=== PATIENT | male | born 1940 | race Two or more races ===

== ENCOUNTER 2025-06-19 12:18 | Outpatient (REF) | payer MEDICARE, SELFPAY ==
--- OUTSIDE RECORDS SUMMARY | 2025-04-18 09:40 | XMS_ITS ---
Author Organization [facility] in [place] Address [address] [place] [address] Care Team Providers Care Buying Intern Name Role Phone Richard ALVAREZ, Kaila Primary Care Provider Consuelo vailaRobert Nguyen Unavailable [phone] REASON FOR VISIT in a hospital Encounters Encounter Location Date Provider Diagnosis [facility] [place] [address] [place] [address] 04/18/2025 Robert Crawford Plan Of Treatment No Information Progress Notes * HERNANDEZShashank LDOB: [birth year] (85 yo M)Acc No.[id number]:04/18/2025 UNLOCKED PROGRESS NOTE Follow Up Patient: Shashank JUDD Provider: Bailee Crawford MD :1940 A ge:85 Y S ex:Male Date:04/18/2025 Address:[address] [place] [address] [address] [place], [id number] Pcp:Kaila Ramos MD Subjective: * Chief Complaints: * 1 . In a hospital. * Medical History: Objective: * Vitals: Assessment: Plan: * Treatment: * * Electronic signature of Nuha Crawfrod MD, [id number] on 06/19/2025 at 12:26 PM EDT Sign off status: Pending Visit Status: C ANC (Cancelled) * Provider: Bailee Crawford MD Date: 0 04/18/2025 Generated for Lisa childers/Lolis/Kee on: 0 06/19/2025 12:26 PM EDT
--- OUTSIDE RECORDS SUMMARY | 2025-06-14 07:15 | XMS_ITS ---
Author Organization [facility] Address [address] [place] [address] Care Team Providers Care Android Framework Developer Name Role Phone KEVIN CALLAHAN Unavailable [phone] MICHELLE ARMIJO Unavailable [phone] REASON FOR VISIT Respiratory failure, Tracheostomy Encounters Encounter Location Date Provider Diagnosis [address] [place], [place] [id number] 06/14/2025 MICHELLE ALEKSANDER Acute hypoxic respir atory failure J96.01 ; Tracheostomy status Z93.0 ; Ventilator dependent Z99.11 ; Congestive heart failure I50.9 ; Pulmonary HTN I27.20 and Pleural effusion J90 Assessments Encounter Date Diagnosis (ICD Code) Assessment Notes Treatment Notes Treatment Clinical Notes Section Notes 06/14/2025 Acute hypoxic respiratory failure (ICD-10 - J96.01) 06/14/2025 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 Kevin Callahan Plan Of Treatment Treatment Notes Assessment Notes Other Seen in collaboratio n and discussed plan of care with Dr. Kevin Callahan Next Appt Details Follow Up: 1 Week, Reason: Progress Notes * Shashank HERNANDEZDOB: [birth year] (85 yo M)Acc No.[id number]:06/14/2025 Progress Notes Patient: Shashank JUDD Appointment Provider: Lucretia ARMIJO NP :1940 A ge:85 Y S ex:Male Date:06/14/2025 Address:[address] [place], [place], [place] Subjective: * Chief Complaints: * R espiratory failureTracheostomy * HPI: C onstitutional: Continuing to see the patient for pulmonary management. Evaluated patients pulmonary status today with the respiratory therapist. Discussed residents current pulmonary status, orders, and plan of care. Physical examination unchanged from baseline. Resident is back from HD. On the ventilator currently. Will hold weaning while on antibiotics. 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 Pneumonia, Klebsiella per recent sputum Encephalopathy Dependent on ventilator at HS and during HD CHF Kidney failure, dependent on HD Pulmonary HTN, EF 63%, RVSP 58 mmHg Tracheoesophageal fistula Pleural effusions with hx frequent thoracentesis Anemia Plan: Levaquin 500 mg x10 days per recent sputum CXR from 06/08 showed infiltrate and infusion, left greater than right CATC as tolerated during the day and PMV as tolerated, after hemodialysis AC VC 16/480/5/30% at HS and PRN Trach care and changes per RT Shiley 6 XLT cuffed Albuterol nebs BID Nephrology following Will continue to monitor pulmonary status. * ROS: U nable to assess due to mentation, current medical condition. * Medical History: * Surgical History: * Hospitalization/Major Diagno stic Procedure: * Medications: Objective: * Vitals: * Examination: G eneral Examination: GENERAL APPEARANCE: i n no acute distress, chronically ill appearing. ORAL CAVITY: m ucosa moist. THROAT: n ormal. NECK/THYROID: n zack supple, trach c/d/i. SKIN: n o suspicious lesions, warm and dry. HEART: n o murmurs, regular rate and rhythm, S1, S2 normal.? LUNGS: d iminished breath sounds throughout. EXTREMITIES: n o clubbing, cyanosis, or edema. ? Assessment: * Assessment: 1. A cute hypoxic respiratory failure - J96.01 (Primary) 2 . T racheostomy status - Z93.0 3 . V entilator dependent - Z99.11 4 . C ongestive heart failure - I50.9 5 . P ulmonary HTN - I27.20 6 . P leural effusion - J90 N otes :with hx frequent thoracentesis Plan: * Treatment: * Procedure Codes: 9 9308 NURSING FAC CARE [id number] BMI<30 AND >=22 CALC & DOCU * Follow Up: 1 Week * * Sign off status: Completed true * Appointment Provider: Lucretia ARMIJO NP Date: 06/14/2025 Generated for Lisa childers/Lolis/Miguelitting on: 0 06/19/2025 12:26 PM EDT History and Physical Notes * HPI (History of Present Illness) Category Sub-Category Detail Notes Category Not es Constitutional Continuing to see the patient for pulmonary management. Evaluated patients pulmonary status today with the respiratory therapist. Discussed residents current pulmonary status, orders, and plan of care. Physical examination unchanged from baseline. Resident is back from HD. On the ventilator currently. Will hold weaning while on antibiotics. 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 Pneumonia, Klebsiella per recent sputum Encephalopathy Dependent on ventilator at HS and during HD CHF Kidney failure, dependent on HD Pulmonary HTN, EF 63%, RVSP 58 mmHg Tracheoesophageal fistula Pleural effusions with hx frequent thoracentesis Anemia Plan: Levaquin 500 mg x10 days per recent sputum CXR from 06/08 showed infiltrate and infusion, left greater than right CATC as tolerated during the day and PMV as tolerated, after hemodialysis AC VC 16/480/5/30% at HS and PRN Trach care and changes per RT Shiley 6 XLT cuffed Albuterol nebs BID Nephrology following Will continue to monitor pulmonary status Examination Category Sub-Category Detail Notes Category Not es General Examination GENERAL APPEARANCE: in no ac bruna distress, chronically ill appearing THROAT: normal NECK/THYROID: neck supple, trach c /d/i HEART: no murmurs, regular rate and rhythm, S1, S2 normal LUNGS: diminished breath so unds throughout SKIN: no suspicious lesion s, warm and dry EXTREMITIES: no clubbing, cyanosi s, or edema ORAL CAVITY: mucosa moist
--- OUTSIDE RECORDS SUMMARY | 2025-06-15 10:17 | XMS_ITS ---
Author Organization [facility] in [place] Address [address] [place] [address] Care Team Providers Care Waxer Floor Name Role Phone Richard ALVAREZ, Kaila Primary Care Provider Consuelo vailable Jj Curtis Unavailable [phone] REASON FOR VISIT critical labs Encounters Encounter Location Date Provider Diagnosis [facility] [place] [address] [place] [address] 06/15/2025 Jj Curtis Plan Of Treatment No Information Progress Notes * Shashank HERNANDEZ LDOB: [birth year] (85 yo M)Acc No.[id number]:06/15/2025 Patient: Lucretia Shashank CHANDLER :1940 A ge:85 Y S ex:Male Address:[address] [place] [address], [facility] [address] * true * Date: Generated for Printi ng/Faxing/eTransmitting on: 0 06/19/2025 12:26 PM EDT
--- OUTSIDE RECORDS SUMMARY | 2025-06-17 06:30 | XMS_ITS ---
Author Organization [facility] Address [address] [place] [address] Care Team Providers Care Gun Welder Name Role Phone KATHY CALLAHANSayda Carreno [phone] REASON FOR VISIT Respiratory failure, Tracheostomy Encounters Encounter Location Date Provider Diagnosis [address] [place], [place] [id number] 06/17/2025 KEVINSayda CALLAHAN Acute hypoxic respir atory failure J96.01 ; Tracheostomy status Z93.0 ; Ventilator dependent Z99.11 ; Congestive heart failure I50.9 ; Pulmonary HTN I27.20 and Pleural effusion J90 Assessments Encounter Date Diagnosis (ICD Code) Assessment Notes Treatment Notes Treatment Clinical Notes Section Notes 06/17/2025 Acute hypoxic respiratory failure (ICD-10 - J96.01) 06/17/2025 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) 06/17/2025 Ventilator dependent (ICD-10 - Z99.11) 06/17/2025 Congestive heart failure (ICD-10 - I50.9) 06/17/2025 Pulmonary HTN (ICD-10 - I27.20) 06/17/2025 Pleural effusion (ICD-10 - J90) with hx frequent thoracentesis Plan Of Treatment Next Appt Details Follow Up: 1 Week, Reason: Progress Notes * Shashank HERNANDEZDOB: 2 (85 yo M)Acc No.[id number]:06/17/2025 Progress Notes Patient: Shashank JUDD Provider: Chris Callahan MD :1940 A ge:85 Y S ex:Male Date:06/17/2025 Phone: Address:[address] [place] [address], [facility] Subjective: * Chief Complaints: * 1 . Respiratory failure. 2. Tracheostomy. * HPI: C onstitutional: Continuing to see the patient for pulmonary management. Evaluated patient in the facility today with staff. Reviewed chart, vital signs, and any new orders. Discussed pulmonary status with the nurse and RT. Physical examination unchanged. No new pulmonary concerns. Continue current orders as written. 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 [...] mentation, current medical condition. * Medical History: Objective: * Vitals: * Examination: G eneral [...] Procedure Codes: 9 9308 NURSING FAC CARE SUBSEQ, G8420 BMI<30 AND >=22 CALC & DOCU * Follow Up: 1 Week * * Electronic signature of KEVIN CALLAHAN MD on 06/19/2025 at 12:26 PM EDT Sign off status: Pending * Provider: Chris Callahan MD Date: 06/17/2025 Generated for Lisa childers/Lolis/Miguelitting on: 06/19/2025 12:26 PM EDT History and Physical Notes * HPI (History of Present Illness) Category Sub-Category Detail Notes Category Not es Constitutional Continuing to see the patient for pulmonary management. Evaluated patient in the facility today with staff. Reviewed chart, vital signs, and any new orders. Discussed pulmonary status with the nurse and RT. Physical examination unchanged. No new pulmonary concerns. Continue current orders as written. 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 [...]
--- OUTSIDE RECORDS SUMMARY | 2025-06-19 12:26 | XMS_ITS | Patient Health Record ---
Author Organization [facility] Address [address] [address] Care Team Providers Care Market Research Analyst Name Role Phone LONDON KEVIN Unavailable [phone] ALONSO REA Unavailable [phone] ALEKSANDER MICHELLE Unavailable [phone] Allergies No Known Allergies Reason For Referral No Information Social History Tobacco Use: Social History Observation Description Date Details (start date - stop date) Never Smoker NA - NA Tobacco Control (Standard) Question Answer Notes Tobacco use: Nonsmoker Problems Problem Type SNOMED Code ICD Code Onset Dates Problem Status W/U Status Risk Notes Problem Tracheostomy present (195217833) Tracheostomy status (Z93.0) Active confirmed Problem Congestive heart failure (57269259) Congestive heart failure (I50.9) Active confirmed Problem History of respirator dependence (733539606) Ventilator dependent (Z99.11) Active confirmed Problem Pulmonary hypertension (69358684) Pulmonary HTN (I27.20) Active confirmed Encounters Encounter Location Date Provider Diagnosis [address] [id number] 06/17/2025 KEVIN CALLAHAN Acute hypoxic respir atory failure J96.01 ; Tracheostomy status Z93.0 ; Ventilator dependent Z99.11 ; Congestive heart failure I50.9 ; Pulmonary HTN I27.20 and Pleural effusion J90 [address] [id number] 06/19/2025 ALONSO REA Acute hypoxic respir atory failure J96.01 ; Tracheostomy status Z93.0 ; Ventilator dependent Z99.11 ; Congestive heart failure I50.9 ; Pulmonary HTN I27.20 and Pleural effusion J90 [address] [id number] 06/07/2025 [facility] Acute hypoxic respir atory failure J96.01 ; Tracheostomy status Z93.0 ; Ventilator dependent Z99.11 ; Congestive heart failure I50.9 ; Pulmonary HTN I27.20 and Pleural effusion J90 [address] [id number] 06/10/2025 KEVIN CALLAHAN Acute hypoxic respir atory failure J96.01 ; Tracheostomy status Z93.0 ; Ventilator dependent Z99.11 ; Congestive heart failure I50.9 ; Pulmonary HTN I27.20 and Pleural effusion J90 [address] [id number] 06/12/2025 [facility] Acute hypoxic respir atory failure J96.01 ; Tracheostomy status Z93.0 ; Ventilator dependent Z99.11 ; Congestive heart failure I50.9 ; Pulmonary HTN I27.20 and Pleural effusion J90 [address] [id number] 06/14/2025 MICHELLE ARMIJO Acute hypoxic respir atory failure J96.01 ; Tracheostomy status Z93.0 ; Ventilator dependent Z99.11 ; Congestive heart failure I50.9 ; Pulmonary HTN I27.20 and Pleural effusion J90 Assessments Encounter Date Diagnosis (ICD Code) Assessment Notes Treatment Notes Treatment Clinical Notes Section Notes 06/07/2025 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) 06/07/2025 Acute hypoxic respiratory failure (ICD-10 - J96.01) 06/10/2025 Acute hypoxic respiratory failure (ICD-10 - J96.01) 06/12/2025 Acute hypoxic respiratory failure (ICD-10 - J96.01) 06/14/2025 Acute hypoxic respiratory failure (ICD-10 - J96.01) 06/17/2025 Acute hypoxic respiratory failure (ICD-10 - J96.01) 06/19/2025 Acute hypoxic respiratory failure (ICD-10 - J96.01) 06/19/2025 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) 06/17/2025 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) 06/14/2025 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) 06/12/2025 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) 06/10/2025 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) 06/07/2025 Ventilator dependent (ICD-10 - Z99.11) 06/07/2025 Congestive heart failure (ICD-10 - I50.9) 06/10/2025 Ventilator dependent (ICD-10 - Z99.11) 06/12/2025 Ventilator dependent (ICD-10 - Z99.11) 06/17/2025 Ventilator dependent (ICD-10 - Z99.11) 06/14/2025 Ventilator dependent (ICD-10 - Z99.11) 06/19/2025 Ventilator dependent (ICD-10 - Z99.11) 06/17/2025 Congestive heart failure (ICD-10 - I50.9) 06/19/2025 Congestive heart failure (ICD-10 - I50.9) 06/12/2025 Congestive heart failure (ICD-10 - I50.9) 06/14/2025 Congestive heart failure (ICD-10 - I50.9) 06/10/2025 Congestive heart failure (ICD-10 - I50.9) 06/07/2025 Pulmonary HTN (ICD-10 - I27.20) 06/07/2025 Pleural effusion (ICD-10 - J90) with hx frequent thoracentesis 06/12/2025 Pulmonary HTN (ICD-10 - I27.20) 06/10/2025 Pulmonary HTN (ICD-10 - I27.20) 06/14/2025 Pulmonary HTN (ICD-10 - I27.20) 06/17/2025 Pulmonary HTN (ICD-10 - I27.20) 06/19/2025 Pulmonary HTN (ICD-10 - I27.20) 06/19/2025 Pleural effusion (ICD-10 - J90) with hx frequent thoracentesis 06/17/2025 Pleural effusion (ICD-10 - J90) with hx frequent thoracentesis 06/12/2025 Pleural effusion (ICD-10 - J90) with hx frequent thoracentesis 06/14/2025 Pleural effusion (ICD-10 - J90) with hx frequent thoracentesis 06/10/2025 Pleural effusion (ICD-10 - J90) with hx frequent thoracentesis 06/19/2025 Other Seen in collaboration and discussed plan of care with Dr. Kevin Callahan 06/07/2025 Other Seen in collaboration and discussed plan of care with Dr. Kevin Callahan 06/12/2025 Other Seen in collaboration and discussed plan of care with Dr. Kevin Callahan 06/14/2025 Other Seen in collaboration and discussed plan of care with Dr. Kevin Callahan Plan Of Treatment No Information Insurance Providers Payer Name Payer Address Payer Phone Subscriber Number Group Number Insured Name Patient Relationship to Insured Coverage Start Date Coverage End Date [employer] [address] [address] [place] [address] [id number] Shashank Harris Self - patient is the insured Medical (General) History Medical History History ICD Code Acute hypoxic respiratory fa ilure Tracheostomy, 12/18/24 Pneumonia Encephalopathy Dependent on ventilator CHF Kidney failure, dependent on HD Pulmonary HTN, EF 63%, RVSP 58 mmHg Tracheoesophageal fistula Pleural effusions with hx frequent thoracentesis Surgical History Surgery Date(Month/Year) Reviewed Hospitalization History Reason Date(Month/Year) Reviewed
--- OUTSIDE RECORDS SUMMARY | 2025-06-19 12:26 | XMS_ITS | Patient Health Record ---
Author Organization [facility] in [place] Address [address] [place] [address] Care Team Providers Care Dispatch Coordinator Name Role Phone Richard ALVAREZ, Kaila Primary Care Provider Jj Perry Unavailable [phone] Robert Crawford Unavailable [phone] Kendrick Olson Unavailable [phone] Allergies Allergen (clinical drug ingredient) Drug/Non Drug Allergy documented on EMR Reaction Allergy Type Onset Date Status No Known Drug Allergy Unknown Drug Allergy Active Results Component Value Reference Range Notes BRN NATRIURETIC PEP Reviewed date:09/13/2024 03:47:23 PM Interpretation: Performing Lab:[facility], [address] [place] [address] PH:[phone] Notes/Report: Pro-BNP 1313 An age-independent cutoff point of 300 pg/ml has a 98% negative predictive 0-300 pg/mL value excluding acute heart failure. Electrolyte Panel Reviewed date:09/13/2024 03:47:13 PM Interpretation: Performing Lab:[facility], [address] [place] [address] PH:[phone] Notes/Report: NA (Sodium) 137 136-145 mmol/L K (Potassium) 4.8 3.7-5.3 mmol/L Chloride 98 98-107 mmol/L CO2 30 20-31 mmol/L Anion Gap 9 9-16 mmol/L BUN/Creatinine Reviewed date:09/13/2024 03:47:20 PM Interpretation: Performing Lab:[facility], [address] [place] [address] PH:[phone] Notes/Report: BUN (Urea N) 19 8-23 mg/dL Creatinine 1.2 0.7-1.2 mg/dL eGFR 60 >60 mL/min/1.73m2 These results are not intended for use in patients <18 years of age. eGFR results are calculated without a race factor using the 2020 CKD-EPI equation. Careful clinical correlation is recommended, particularly when comparing to results calculated using previous equations. The CKD-EPI equation is less accurate in patients with extremes of muscle mass, extra-renal metabolism of creatine, excessive creatine ingestion, or following therapy that affects renal tubular secretion. Surgical Pathology ([facility]) ( Not yet reviewed by provider) Interpretation: Performing Lab: Notes/Report: Path Number: [id number] -- Diagnosis -- A. STOMACH, BIOPSY: -GASTRIC MUCOSA WITH INTESTINAL METAPLASIA. -NO HELICOBACTER ORGANISMS IDENTIFIED. B. ESOPHAGUS, UPPER, BIOPSY: -ACUTE EXUDATIVE INFLAMMTORY INFILTRATE. -NO FUNGAL ORGANISMS OR VIRAL CYTOPATHIC EFFECT. Radha Xie Electronically Signed Out ag/11/21/2024 Clinical Information Pre-Op Diagnosis: HEMATEMESIS, UNSPECIFIED WHETHER NAUSEA PRESENT Operative Findings: STOMACH BIOPSY; UPPER ESOPHAGEAL BLAQUE Operation Performed: ESOPHAGOGASTRODUODENOSCOPY BIOPSY se Source of Specimen A: STOMACH BIOPSY B: UPPER ESOPHAGUS BLAQUE Gross Description A. SHASHANK HERNANDEZ, STOMACH BIOPSY Received in formalin are two singh-white tissue fragments each 0.2 cm and are 0.4 x 0.2 x 0.1 cm in aggregate. Entirely 1cs. B. SHASHANK HERNANDEZ, UPPER ESOPHAGUS Received in formalin are four singh-white tissue fragments from 0.1 to 0.3 cm and are 0.6 x 0.1 x 0.1 cm in aggregate. Entirely 1cs. [facility] er Radha Xie/se:11/17/2024 Microscopic Description A, B. Microscopic examination performed. A. H. pylori immunostain is negative, control reactive. B. GMS and CMV are negative, controls reactive. asr Processing Lab: [facility] [address] [place] [address] Interpretation Performed at [facility] [address] [place], [place] SURGICAL PATHOLOGY CONSULTATION Patient Name: SHASHANK HERNANDEZ [facility] Rec: [id number] [facility] ANATOMIC PATHOLOG[facility] [address] [facility]. [place], [place] [address] XR CHEST PORTABLE (Not yet r eviewed by provider) Interpretation: Performing Lab: Notes/Report: EXAMINATION: Performed at: [address] [facility] [address] Performed at: XR CHEST (SINGLE VIEW FRONTA L) Reviewed date:11/16/2024 01:28:44 PM Interpretation: Performing Lab: Notes/Report: EXAMINATION: Performed at: [address] [facility] [address] Performed at: XR CHEST PORTABLE Reviewed date:11/16/2024 01:28:22 PM Interpretation: Performing Lab: Notes/Report: EXAMINATION: Performed at: [address] [facility] [address] Performed at: XR CHEST PORTABLE Reviewed date:11/16/2024 02:50:22 PM Interpretation: Performing Lab: Notes/Report: EXAMINATION: Performed at: [address] [address] Performed at: BUN/Creatinine Reviewed date:10/10/2024 03:54:38 PM Interpretation: Performing Lab:[facility], [address] [place] [address] PH:[phone] Notes/Report: BUN (Urea N) 19 8-23 mg/dL Creatinine 1.3 0.7-1.2 mg/dL eGFR 55 >60 mL/min/1.73m2 These results are not intended for use in patients <18 years of age. eGFR results are calculated without a race factor using the 2020 CKD-EPI equation. Careful clinical correlation is recommended, particularly when comparing to results calculated using previous equations. The CKD-EPI equation is less accurate in patients with extremes of muscle mass, extra-renal metabolism of creatine, excessive creatine ingestion, or following therapy that affects renal tubular secretion. Electrolyte Panel Reviewed date:10/10/2024 03:54:30 PM Interpretation: Performing Lab:[facility], [address] [place] [address] PH:[phone] Notes/Report: NA (Sodium) 137 136-145 mmol/L K (Potassium) 4.3 3.7-5.3 mmol/L Chloride 99 98-107 mmol/L CO2 30 20-31 mmol/L Anion Gap 8 9-16 mmol/L BRN NATRIURETIC PEP Reviewed date:10/10/2024 03:54:41 PM Interpretation: Performing Lab:[facility], [address] [place] [address] PH:[phone] Notes/Report: Pro-BNP 1185 An age-independent cutoff point of 300 pg/ml has a 98% negative predictive 0-300 pg/mL value excluding acute heart failure. BUN/Creatinine Reviewed date:08/17/2024 08:59:18 AM Interpretation: Performing Lab:[facility], [address] [place] [address] PH:[phone] Notes/Report: BUN (Urea N) 27 8-23 mg/dL Creatinine 1.1 0.70-1.20 mg/dL eGFR 65 >60 mL/min/1.73m2 These results are not intended for use in patients <18 years of age. eGFR results are calculated without a race factor using the 2020 CKD-EPI equation. Careful clinical correlation is recommended, particularly when comparing to results calculated using previous equations. The CKD-EPI equation is less accurate in patients with extremes of muscle mass, extra-renal metabolism of creatine, excessive creatine ingestion, or following therapy that affects renal tubular secretion. Electrolyte Panel Reviewed date:08/17/2024 08:59:09 AM Interpretation: Performing Lab:[facility], [address] [place] [address] PH:[phone] Notes/Report: NA (Sodium) 137 136-145 mmol/L K (Potassium) 4.8 3.7-5.3 mmol/L Chloride 101 98-107 mmol/L CO2 27 20-31 mmol/L Anion Gap 9 9-16 mmol/L BRN NATRIURETIC PEP Reviewed date:08/17/2024 08:59:06 AM Interpretation: Performing Lab:[facility], [address] [place] [address] PH:[phone] Notes/Report: Pro-BNP 1045 An age-independent cutoff point of 300 pg/ml has a 98% negative predictive 0-300 pg/mL value excluding acute heart failure. BASIC METABOLIC PANL Reviewed date:07/13/2024 03:14:27 PM Interpretation: Performing Lab:[facility], [address] [place] [address] PH:[phone] Notes/Report: NA (Sodium) 130 135-144 mmol/L K (Potassium) 4.7 3.7-5.3 mmol/L Chloride 96 98-107 mmol/L CO2 27 20-31 mmol/L Anion Gap 7 9-17 mmol/L Glucose 102 70-99 mg/dL BUN (Urea N) 23 8-23 mg/dL Creatinine 1.1 0.7-1.2 mg/dL eGFR 67 >60 mL/min/1.73m2 These results are not intended for use in patients <18 years of age. eGFR results are calculated without a race factor using the 2020 CKD-EPI equation. Careful clinical correlation is recommended, particularly when comparing to results calculated using previous equations. The CKD-EPI equation is less accurate in patients with extremes of muscle mass, extra-renal metabolism of creatine, excessive creatine ingestion, or following therapy that affects renal tubular secretion. Calcium 8.8 8.6-10.4 mg/dL BRN NATRIURETIC PEP Reviewed date:07/13/2024 03:14:22 PM Interpretation: Performing Lab:[facility], [address] [place] [address] PH:[phone] Notes/Report: Pro-BNP 881 <300 pg/mL An age-independent cutoff point of 300 pg/ml has a 98% negative predictive value excluding acute heart failure. BUN/Creatinine Reviewed date:06/29/2024 09:55:11 AM Interpretation: Performing Lab:[facility], [address] [place] [address] PH:[phone] Notes/Report: BUN (Urea N) 25 8-23 mg/dL Creatinine 1.0 0.7-1.2 mg/dL eGFR 75 >60 mL/min/1.73m2 These results are not intended for use in patients <18 years of age. eGFR results are calculated without a race factor using the 2020 CKD-EPI equation. Careful clinical correlation is recommended, particularly when comparing to results calculated using previous equations. The CKD-EPI equation is less accurate in patients with extremes of muscle mass, extra-renal metabolism of creatine, excessive creatine ingestion, or following therapy that affects renal tubular secretion. Electrolyte Panel Reviewed date:06/29/2024 09:55:04 AM Interpretation: Performing Lab:[facility], [address] [place] [address] PH:[phone] Notes/Report: NA (Sodium) 135 135-144 mmol/L K (Potassium) 4.9 3.7-5.3 mmol/L Chloride 100 98-107 mmol/L CO2 27 20-31 mmol/L Anion Gap 8 9-17 mmol/L BRN NATRIURETIC PEP Reviewed date:06/29/2024 09:55:13 AM Interpretation: Performing Lab:[facility], [address] [place] [address] PH:[phone] Notes/Report: Pro-BNP 776 <300 pg/mL An age-independent cutoff point of 300 pg/ml has a 98% negative predictive value excluding acute heart failure. XR CHEST PORTABLE (Not yet r eviewed by provider) Interpretation: Performing Lab: Notes/Report: EXAMINATION: Performed at: [address] [address] Performed at: XR CHEST PORTABLE (Not yet r eviewed by provider) Interpretation: Performing Lab: Notes/Report: EXAMINATION: Performed at: [address] [address] Performed at: XR CHEST PORTABLE (Not yet r eviewed by provider) Interpretation: Performing Lab: Notes/Report: EXAMINATION: Performed at: [place] [address] Performed at: Reason For Referral No Information Medications Medication SIG (Take, Route, Frequency, Duration) Notes Start Date End Date Status Jardiance 10 MG 1 tablet Orally Once a day for 30 days 10/27/2024 Active rOPINIRole HCl 2 MG 1 tablet 1 to 3 hour s before bedtime Orally Once a day Active Pantoprazole Sodium 40 MG 1 tablet Orall y Once a day Active Tamsulosin HCl 0.4 MG 1 capsule Orally O nce a day Active Spironolactone 25 MG 1 tablet Orally Onc e a day for 90 days Active Centrum Silver - as directed Orally Active Vitamin D 25 MCG (1000 UT) 1 tablet Oral ly Once a day Active busPIRone HCl 15 MG 1 tablet Orally Twic e a day Active Tetrahydrozoline HCl 0.05 % 1 drop into affected eye as needed Ophthalmic Four times a day Active Folic Acid 1 MG 1 tablet Orally Once a day Active Zolpidem Tartrate 10 MG 1 tablet at bedt dottie as needed Orally Once a day Active Ferrous Sulfate 325 (65 Fe) MG 1 tablet Orally Three times a Week Active Warfarin Sodium 2 MG 1 tablet Orally Onc e a day Active Magnesium Oxide 400 MG 1 tablet Orally O nce a day for 60 days Active Simvastatin 10 MG 1 tablet in evening Orally Once a day 05/16/2024 Active Furosemide 40 MG 1 tablet Orally Once a day Active Loratadine 10 MG 1 tablet Orally Once a day Active Metoprolol Tartrate 50 MG 1 tablet with food Orally Twice a day Active Social History Tobacco Use: Social History Observation Description Date Details (start date - stop date) Former Smoker NA - NA Tobacco Control (Standard) Question Answer Notes Tobacco use: Former smoker Section Notes: 04/26/24~ Starting smoking dur ing his 30s, quit in 2003, smoked a couple of cigarettes a day 04/26/24~ Starting smoking dur ing his 30s, quit in 2003, smoked a couple of cigarettes a day 04/26/24~ Starting smoking dur ing his 30s, quit in 2003, smoked a couple of cigarettes a day Problems Problem Type SNOMED Code ICD Code Onset Dates Problem Status W/U Status Risk Notes Problem 650248847 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 Problem 3338438904286 Chronic diastoli c (congestive) heart failure (I50.32) Active confirmed Problem 46253562 Pleural effusion , not elsewhere classified (J90) Active confirmed Problem 339150162388 Somnolence (R40.0) Active confirme d Problem Hyperlipidemia (08523905) Hyperlipidemia (E78.5) Active confirmed Problem Congestive heart failure (01319985) CHF (congestive heart failure) (I50.9) Active confirmed Problem Dyspnea (847432059) SOB (shortness of breath) (R06.02) Active confirmed Problem Atrial fibrillation (24771061) Afib (I48.91) Active confirmed Problem Hypertension (26833283) HTN (hypertension) (I10) Active confirmed Problem Heart failure (54376633) CHF, acute on chronic (I50.9) Active confirmed Problem Pulmonary hypertension (92513208) Pulmonary HTN (I27.20) Active confirmed Vital Signs Heart Rate 68 /min 09/20/2024 Oximetry 98 % 09/20/2024 Blood pressure diastolic 79 mm Hg 09/20/2024 Height 63.25 in 09/20/2024 Blood pressure systolic 118 mm Hg 09/20/2024 Weight 183.4 lbs 09/20/2024 BMI 32.23 kg/m2 09/20/2024 Procedures Procedure Date Ordered Date Performed Result Body Sit e EKG w Interp & Report - performed 09/20/2024 N/ A Encounters Encounter Location Date Provider Diagnosis Cardiology [address] [address] 09/20/2024 Robert Crawford Afib I48.91 ; Hyperlipidemia E78.5 ; CHF (congestive heart failure) I50.9 and SOB (shortness of breath) R06.[address] [address] 07/17/2024 Robert Crawford Cardiology [address] [address] 10/27/2024 Robert Crawford [facility] [place] [address] [facility] [place] [address] 06/15/2025 Jj Curtis Assessments Encounter Date Diagnosis (ICD Code) Assessment Notes Treatment Notes Treatment Clinical Notes Section Notes 09/20/2024 Afib (ICD-10 - I48.91) Qs to ask: atrial fibrillation material was printed At present heart rate under control today's ECG showed heart rate 68 A-fib 09/20/2024 Hyperlipidemia (ICD-10 - E78.5) Needs to check lipid profile 09/20/2024 CHF (congestive heart failure) (ICD-10 - I50.9) Diastolic CHF compensated 09/20/2024 SOB (shortness of breath) (ICD-10 - R06.02) At present no significant problem 09/20/2024 Other Today his blood pressure was 120/70 and ECG showed A-fib heart rate 68 Neck veins were normal, lungs were clear on auscultation He has bilateral lower extremities chronic edema with pigmentation with a hardening of the skin below knees No change for long time At present he is independent in his activities of daily living and he has no orthopnea Continue with current medications Follow-up in 6 months Plan Of Treatment Pending Test Test Name Order Date EKG w Interp & Report - performed 2023 EKG w Interp & Report - performed 2023 Surgical Pathology ([facility]) 11/16/2024 PSG Complete (Includes Diagnotic and Tit ration) 04/26/2024 HSV 02/18/2024 HSV 03/24/2024 XR CHEST PORTABLE 11/18/2024 XR CHEST PORTABLE 11/19/2024 XR CHEST PORTABLE 11/19/2024 XR CHEST PORTABLE 11/20/2024 Insurance Providers Payer Name Payer Address Payer Phone Subscriber Number Group Number Insured Name Patient Relationship to Insured Coverage Start Date Coverage End Date [facility] [employer] [address] [address] [place] [address] [id number] Shashank Hernandez Self - patient is the insured Medical (General) History Medical History History ICD Code HTN Atrial Fibrillation Hypercholesterolemia No history of pacemaker/defibrillator Surgical History Surgery Date(Month/Year) thoracentesis 01/2024 Thorancentesis 03/2024 Hospitalization History Reason Date(Month/Year) CHF 03/2024 Altered mental status, low oxygen 01/2024 lethargic low oxygen 12/2023
[2025-06-19 12:41] LABS: Hematocrit 24.4 % (42.0-54.0); Hemoglobin 7.3 g/dL (14.0-18.0)
== END 2025-06-19 12:19 | disposition home or self-care (01) ==
LOC: LAB 12:18
PROVIDERS: PCP Family Medicine
DX: N18.6 End stage renal disease (principal)
CPT/HCPCS: 36415; 85014; 85018